=== PATIENT | female | born 1955 | race Caucasian/White ===

== ENCOUNTER → 2023-09-10 11:27 | Outpatient (REF) | payer MEDICARE, OTHER, SELFPAY | LOC: RAD 11:27 | PROVIDERS: ATTENDING PHYSICIAN Nurse Practitioner Adult Health; FAMILY PHYSICIAN Family Medicine | DX: R05.1 Acute cough (principal) | CPT/HCPCS: 71046 ==

== ENCOUNTER → 2023-11-29 07:36 | Outpatient (REF) | payer MEDICARE, OTHER, SELFPAY | LOC: RAD 07:36 | PROVIDERS: ATTENDING PHYSICIAN Specialist; FAMILY PHYSICIAN Family Medicine | DX: R15.0 Incomplete defecation (principal) | CPT/HCPCS: 74270 ==

== ENCOUNTER → 2024-03-11 08:19 | Outpatient (REF) | payer MEDICARE, OTHER, SELFPAY ==
[2024-03-11 10:12] LABS: Hematocrit 39.6 % (37.0-47.0); Hemoglobin 12.9 g/dL (12.0-16.0); Mean Corp Hgb Conc. 32.6 g/dL (33.0-37.0); Mean Corpuscular Hgb 27.3 pg (27.0-31.0); Mean Corpuscular Volume 83.9 fL (81.0-99.0); Mean Platelet Volume 11.4 fL (7.4-10.4); Platelet Count 188 10^3/uL (130-400); Red Blood Cell Count 4.72 10^6/uL (4.20-5.40); Red Cell Dist. Width 13.3 % (11.5-14.5); White Blood Cell Count 7.3 10^3/uL (4.8-10.8)
[2024-03-11 14:05] LABS: Blood Urea Nitrogen 13 mg/dl (7-17); Calcium 9.7 mg/dl (8.4-10.2); Carbon Dioxide 25 mmol/L (22-30); Chloride 103 mmol/L (98-107); Glucose 87 mg/dl (70-99); Potassium 4.5 mmol/L (3.5-5.1); Sodium 137 mmol/L (135-145); eGFR > 60.00
== END ==
LOC: SDSPAT 08:19
PROVIDERS: ATTENDING PHYSICIAN Obstetrics & Gynecology; FAMILY PHYSICIAN Family Medicine
DX: Z01.818 Encounter for other preprocedural examination (principal)
CPT/HCPCS: 36415; 80048; 85027; 86850; 86900; 86901; 93005

== ENCOUNTER 2024-03-17 06:27 | Day surgery (SDC) | payer MEDICARE, OTHER, SELFPAY ==
[2024-03-11 09:34] VITALS: BMI 34.7
[2024-03-17] VITALS (9 sets, daily range): BP systolic 117–152; BP diastolic 59–75; BMI 34.7
[2024-03-17] MEDS: Pyridium 200 MG PO (09:11)
[2024-03-17] MEDS: MOTRIN 600 MG PO (15:07)
[2024-03-17] MEDS: ROXICODONE 5 MG PO (15:07)
== END 2024-03-17 16:28 | disposition home or self-care (01) ==
LOC: SDS 06:27
PROVIDERS: ATTENDING PHYSICIAN Obstetrics & Gynecology; FAMILY PHYSICIAN Family Medicine
DX: N81.6 Rectocele (principal); N95.2 Postmenopausal atrophic vaginitis; R31.1 Benign essential microscopic hematuria
CPT/HCPCS: 57250; 86900; 86901; J1580

== ENCOUNTER → 2024-04-25 06:16 | Day surgery (SDC) | payer MEDICARE, OTHER, SELFPAY | LOC: GI 06:16 | PROVIDERS: ATTENDING PHYSICIAN Specialist | DX: K29.50 Unspecified chronic gastritis without bleeding (principal); K31.7 Polyp of stomach and duodenum; K31.89 Other diseases of stomach and duodenum; K21.00 Gastro-esophageal reflux disease with esophagitis, without bleeding; R13.10 Dysphagia, unspecified | CPT/HCPCS: 43239; 88305; 88342 ==

== ENCOUNTER → 2024-07-08 11:42 | Outpatient (REF) | payer MEDICARE, OTHER, SELFPAY | LOC: WDC 11:42 | PROVIDERS: ATTENDING PHYSICIAN Obstetrics & Gynecology Gynecology; FAMILY PHYSICIAN Family Medicine | DX: Z12.31 Encounter for screening mammogram for malignant neoplasm of breast (principal) | CPT/HCPCS: 77063; 77067 ==

== ENCOUNTER → 2024-08-08 11:22 | Outpatient (REF) | payer MEDICARE, OTHER, SELFPAY | LOC: RAD 11:22 | PROVIDERS: ATTENDING PHYSICIAN Specialist; FAMILY PHYSICIAN Family Medicine | DX: K58.1 Irritable bowel syndrome with constipation (principal) | CPT/HCPCS: 74022 ==

== ENCOUNTER → 2024-10-03 08:35 | Outpatient (REF) | payer MEDICARE, OTHER, SELFPAY | LOC: RAD 08:35 | PROVIDERS: ATTENDING PHYSICIAN Obstetrics & Gynecology Gynecology; FAMILY PHYSICIAN Family Medicine | DX: N95.0 Postmenopausal bleeding (principal) | CPT/HCPCS: 76830; 76856 ==

== ENCOUNTER 2025-01-01 06:15 | Day surgery (SDC) | payer MEDICARE, OTHER, SELFPAY | END 2025-01-01 09:50 | disposition home or self-care (01) | LOC: GI 06:15 | PROVIDERS: ATTENDING PHYSICIAN Specialist; FAMILY PHYSICIAN Family Medicine | DX: Z12.11 Encounter for screening for malignant neoplasm of colon (principal); K57.30 Diverticulosis of large intestine without perforation or abscess without bleeding; D12.3 Benign neoplasm of transverse colon; D12.4 Benign neoplasm of descending colon; K63.5 Polyp of colon; Z86.0101 Personal history of adenomatous and serrated colon polyps | CPT/HCPCS: 45380; 88305 ==

== ENCOUNTER → 2025-04-20 12:29 | Outpatient (REF) | payer MEDICARE, OTHER, SELFPAY | LOC: RAD 12:29 | PROVIDERS: ATTENDING PHYSICIAN Nurse Practitioner Adult Health; FAMILY PHYSICIAN Family Medicine | DX: R10.31 Right lower quadrant pain (principal) | CPT/HCPCS: 73502 ==

== ENCOUNTER → 2025-06-02 10:03 | Outpatient (REF) | payer MEDICARE, OTHER, SELFPAY ==
[2025-06-02 11:21] LABS: Hematocrit 43.2 % (37.0-47.0); Hemoglobin 13.6 g/dL (12.0-16.0); Mean Corp Hgb Conc. 31.5 g/dL (33.0-37.0); Mean Corpuscular Volume 84.9 fL (81.0-99.0); Nucleated Red Blood Cells % 0 %; Platelet Count 235 10^3/uL (130-400); Red Cell Dist. Width 12.9 % (11.5-14.5)
[2025-06-02 11:56] LABS: ALT (SGPT) 21 U/L (0-35); AST (SGOT) 22 U/L (14-36); Albumin 4.3 g/dl (3.5-5.0); Alkaline Phosphatase 86 U/L (38-126); Blood Urea Nitrogen 17 mg/dl (7-17); Calcium 9.7 mg/dl (8.4-10.2); Carbon Dioxide 27 mmol/L (22-30); Chloride 102 mmol/L (98-107); Glucose 90 mg/dl (70-99); HDL Cholesterol 46 mg/dl; LDL Cholesterol, Calculated 75 mg/dl; Potassium 4.3 mmol/L (3.5-5.1); Sodium 138 mmol/L (135-145); Total Protein 6.7 g/dl (6.3-8.2); Very Low Density Lipoprotein 31 mg/dl (0-30); eGFR > 60.00
[2025-06-02 12:58] LABS: Glycohemoglobin (HgbA1c) 5.5 % (4.0-5.9)
== END ==
LOC: REG 10:03
PROVIDERS: ATTENDING PHYSICIAN Family Medicine
DX: E88.819 Insulin resistance, unspecified (principal); Z13.1 Encounter for screening for diabetes mellitus; E78.00 Pure hypercholesterolemia, unspecified; Z13.29 Encounter for screening for other suspected endocrine disorder; R53.83 Other fatigue; R73.09 Other abnormal glucose
CPT/HCPCS: 36415; 80053; 80061; 83036; 84443; 85025

== ENCOUNTER → 2025-07-10 11:41 | Outpatient (REF) | payer MEDICARE, OTHER, SELFPAY | LOC: WDC 11:41 | PROVIDERS: ATTENDING PHYSICIAN Family Medicine | DX: Z12.31 Encounter for screening mammogram for malignant neoplasm of breast (principal) | CPT/HCPCS: 77063; 77067 ==